=== PATIENT | female | born 1965 | race Caucasian/White ===

== ENCOUNTER → 2017-06-28 | Outpatient (CLI) | payer OTHER | END | disposition home or self-care (01) | LOC: US 14:42 | DX: K11.1 Hypertrophy of salivary gland (principal) | CPT/HCPCS: 76882 ==

== ENCOUNTER 2017-07-06 08:31 | Outpatient (CLI) | payer OTHER ==
[2017-07-06] MEDS ORDERED: LIDOCAINE WITH 8.4% SOD BICARB 3 ML DISP.SYRIN. (09:24)
[2017-07-06] MEDS: LIDOCAINE WITH 8.4% SOD BICARB 3 ML DISP.SYRIN. IJ (10:05)
== END 2017-07-06 10:42 | disposition home or self-care (01) ==
LOC: INTRAD 08:31
DX: R59.1 Generalized enlarged lymph nodes (principal); K11.20 Sialoadenitis, unspecified; Z90.49 Acquired absence of other specified parts of digestive tract; Z90.710 Acquired absence of both cervix and uterus; E66.9 Obesity, unspecified; Z68.31 Body mass index [BMI] 31.0-31.9, adult
CPT/HCPCS: 38505; 76942; 88305; 88341; 88342